=== PATIENT | female | born 1965 | race Asian ===

== ENCOUNTER 2020-10-30 13:12 | Emergency (ER) | payer BC, OTHER ==
[2020-10-30 13:28] VITALS: BMI 36.1
[2020-10-30 15:49] LABS: BASO % 0.2 % (0-2.0); HEMOGLOBIN 12.1 GM/dL (10.7-15.3); LYMPH % 17.5 % (8-40); MCH 26.9 pg (25.7-33.7); MCHC 32.6 g/dl (32.0-36.0); MEAN CELL VOLUME 82.4 fl (80-96); MEAN PLT VOLUME 9.9 fl (7.5-11.1); NEUT % 80.3 % (42.8-82.8); PLATELET COUNT 253 K/MM3 (134-434); RBC 4.49 M/mm3 (3.60-5.2); RDW 14.2 % (11.6-15.6); WHITE BLOOD COUNT 7.1 K/mm3 (4.0-10.0)
[2020-10-30 16:06] LABS: CHLORIDE 107 mmol/L (98-107); SODIUM 141 mmol/L (136-145)
[2020-10-30 16:07] LABS: ANION GAP 8 MMOL/L (8-16); BLOOD UREA NITROGEN 11.6 mg/dL (7-18); CALCIUM 9.4 mg/dL (8.5-10.1); CO2 26 mmol/L (21-32); GLUCOSE,RANDOM 118 mg/dL (74-106)
[2020-10-30 16:12] LABS: CREATININE 0.7 mg/dL (0.55-1.3)
[2020-10-30 19:18] LABS: CHLORIDE 108 mmol/L (98-107); SODIUM 141 mmol/L (136-145)
[2020-10-30 19:21] LABS: CALCIUM 9.4 mg/dL (8.5-10.1)
[2020-10-30 19:23] LABS: ANION GAP 5 MMOL/L (8-16); BLOOD UREA NITROGEN 10.2 mg/dL (7-18); CO2 28 mmol/L (21-32); GLUCOSE,RANDOM 110 mg/dL (74-106)
[2020-10-30 19:27] LABS: CREATININE 0.7 mg/dL (0.55-1.3)
[2020-10-30 20:03] VITALS: BP 133/78; PULSE 98; TEMP 98
== END 2020-10-30 20:05 | disposition home or self-care (01) ==
LOC: JER 13:12
PROC: 3E0F7GC Introduction of Other Therapeutic Substance into Respiratory Tract, Via Natural or Artificial Opening (ICD-10-PCS; principal; 2020-10-30)
PROC: 3E033GC Introduction of Other Therapeutic Substance into Peripheral Vein, Percutaneous Approach (ICD-10-PCS; 2020-10-30)
DX: T78.40XA Allergy, unspecified, initial encounter (principal); R07.9 Chest pain, unspecified
CPT/HCPCS: 36415; 80048; 84484; 85025; 93005; 93010; 99285-25

== ENCOUNTER 2023-09-28 06:56 | Emergency (ER) | payer BC, OTHER ==
[2023-09-28 07:19] VITALS: BP 137/93; PULSE 76; RESP 18; TEMP 97.9; BMI 34.7
[2023-09-28] MEDS ORDERED: ACETAMINOPHEN 1000 MG/100 ML BAG IVPB ONE (08:31)
[2023-09-28] MEDS ORDERED: SODIUM CHLORIDE 0.9% 500 ML INFUS.BAG IV ONE (08:31)
[2023-09-28] MEDS ORDERED: METOCLOPRAMIDE HCL INJECTION 10 MG/2 ML VIAL IVPB ONE (08:31)
[2023-09-28] MEDS ORDERED: ACETAMINOPHEN INJECTION 100 ML IVPB ONE (08:48)
[2023-09-28] MEDS ORDERED: METOCLOPRAMIDE HCL INJECTION 10 MG/2 ML VIAL ONE (08:48)
[2023-09-28 09:34] LABS: BASO % 0.7 % (0-2.0); EOS % 0.4 % (0-4.5); HEMATOCRIT 44.4 % (32.4-45.2); HEMOGLOBIN 14.6 GM/dL (10.7-15.3); LYMPH % 19.3 % (8-40); MCH 27.1 pg (25.7-33.7); MCHC 32.9 g/dl (32.0-36.0); MEAN CELL VOLUME 82.2 fl (80-96); MEAN PLT VOLUME 9.6 fl (7.5-11.1); MONO % 6.1 % (3.8-10.2); NEUT % 73.5 % (42.8-82.8); PLATELET COUNT 298 10^3/uL (134-434); RDW 13.9 % (11.6-15.6); WHITE BLOOD COUNT 8.5 K/mm3 (4.0-10.0)
[2023-09-28 10:01] LABS: POTASSIUM 3.7 mmol/L (3.5-5.1)
[2023-09-28 10:04] LABS: BLOOD UREA NITROGEN 16.2 mg/dL (7-18); CALCIUM 9.9 mg/dL (8.5-10.1); MAGNESIUM 2.5 mg/dL (1.8-2.4)
[2023-09-28 10:06] LABS: PHOSPHOROUS 3.6 mg/dL (2.5-4.9)
[2023-09-28 10:07] LABS: CREATININE 0.7 mg/dL (0.55-1.3)
[2023-09-28 10:08] LABS: BILIRUBIN,TOTAL 0.5 mg/dL (0.2-1); TOT PROT 7.8 g/dl (6.4-8.2)
== END 2023-09-28 12:35 | disposition home or self-care (01) ==
LOC: JER 06:56
PROC: 3E033NZ Introduction of Analgesics, Hypnotics, Sedatives into Peripheral Vein, Percutaneous Approach (ICD-10-PCS; principal; 2023-09-28)
PROC: 3E033GC Introduction of Other Therapeutic Substance into Peripheral Vein, Percutaneous Approach (ICD-10-PCS; 2023-09-28)
PROC: 3E033GC Introduction of Other Therapeutic Substance into Peripheral Vein, Percutaneous Approach (ICD-10-PCS; 2023-09-28)
DX: R11.2 Nausea with vomiting, unspecified (principal); R51.9 Headache, unspecified; Z20.822 Contact with and (suspected) exposure to COVID-19
CPT/HCPCS: 0241U-QW; 36415; 70450-TC; 71046-TC-FY; 80053; 83735; 84100; 84484; 85025; 93005; 93010; 99285-25

== ENCOUNTER 2024-02-05 17:46 | Emergency (ER) | payer BC, OTHER ==
[2024-02-05 17:55] VITALS: BP 141/83; PULSE 73; RESP 18; TEMP 98.3; BMI 33.3
[2024-02-05] MEDS ORDERED: ACETAMINOPHEN 500 MG TABLET (FP) ONE (18:15)
[2024-02-05] MEDS: ACETAMINOPHEN 500 MG TABLET (FP) PO ONE (18:44)
[2024-02-05] MEDS ORDERED: CYCLOBENZAPRINE HCL 10 MG TABLET (FP) ONE (19:23)
[2024-02-05] MEDS ORDERED: KETOROLAC TROMETHAMINE 30 MG/1 ML VIAL ONE (19:24)
[2024-02-05] MEDS: CYCLOBENZAPRINE HCL 10 MG TABLET (FP) PO ONE (19:31)
[2024-02-05] MEDS: KETOROLAC TROMETHAMINE 30 MG/1 ML VIAL IM ONE (19:31)
== END 2024-02-05 20:10 | disposition home or self-care (01) ==
LOC: JERFT 17:46
PROC: 3E0233Z Introduction of Anti-inflammatory into Muscle, Percutaneous Approach (ICD-10-PCS; principal; 2024-02-05)
DX: R51.9 Headache, unspecified (principal); M25.512 Pain in left shoulder; R07.89 Other chest pain; S02.5XXA Fracture of tooth (traumatic), initial encounter for closed fracture; W01.0XXA Fall on same level from slipping, tripping and stumbling without subsequent striking against object, initial encounter
CPT/HCPCS: 71101-TC-LT-FY; 73030-TC-LT-FY; 99284-25